=== PATIENT | female | born 1995 ===

== ENCOUNTER → 2019-10-17 | Outpatient (CLI) | payer OTHER ==
--- NOTE | 2019-10-17 13:07 | KCIC ---
MR of the left wrist HISTORY: Left wrist pain, posterior. Injury 5 months ago. TECHNIQUE: Routine multiplanar sequences are obtained. FINDINGS: Mild signal within the extensor carpi ulnaris tendon, without gross thickening. Mild surrounding edema/fluid. Findings compatible with tendinosis. Triangular fibrocartilage is intact. The other extensor compartments are intact. Flexor tendons are intact. Median nerve unremarkable. Heterogeneous signal within the scapholunate ligament but no evidence of through and through rupture. No definite evidence of lunotriquetral ligament tear. Diffuse marrow edema signal within the lunate bone. Corresponding loss of fatty marrow T1 signal, particularly within the proximal central aspect of the lunate. Suggestion of a fracture of the posterior lunate through the distal articular surface, sagittal image 11, series 12 and series 13. Minimal subchondral marrow edema at the distal radius. No evidence of aggressive bone destruction. Small radiocarpal and midcarpal joint effusions and/or synovitis. IMPRESSION: 1. Abnormal marrow signal within the lunate bone with a suspected nondisplaced fracture. Findings could all be posttraumatic, but the loss of T1 marrow signal is concerning for osteonecrosis or Kienbock's disease. 2. Mild extensor carpi ulnaris tendinosis/tenosynovitis. 3. Small radiocarpal and midcarpal joint effusions/synovitis. Electronically signed by: Pankaj Reyes MD (10/17/2019 1:04 PM) [id number]
== END | disposition home or self-care (01) ==
LOC: KCIC MRI 09:48
PROVIDERS: ATTEND Physician Assistant
DX: S63.512A Sprain of carpal joint of left wrist, initial encounter (principal); M25.432 Effusion, left wrist; X58.XXXA Exposure to other specified factors, initial encounter; Y93.89 Activity, other specified; Y92.89 Other specified places as the place of occurrence of the external cause; Y99.8 Other external cause status
CPT/HCPCS: 73221